=== PATIENT | female | born 1975 | race Caucasian/White ===

== ENCOUNTER 2021-05-24 10:18 | Emergency (ER) | payer OTHER ==
[2021-05-24] MEDS ORDERED: Sodium Chloride 0.9% 10 ML Syringe FLUSH PRN (11:04)
[2021-05-24] MEDS ORDERED: Adenosine 6 MG/2 ML SDV IVPUSH ONE ×2 (11:06)
--- NOTE | 2021-05-24 11:11 | EDM.PDOC ---
<Henry Lawler - Last Filed: 05/25/21 10:08> ED HPI GENERAL MEDICAL PROBLEM - General Chief Complaint: Cardiovascular Problem Stated Complaint: SHORTNESS OF BREATH Time Seen by Provider: 05/24/21 10:54 - Related Data Allergies Allergy/AdvReac Type Severity Reaction Status Date / Time No Known Allergies Allergy Verified 05/24/21 11:00 Home Meds: Home Meds Ascorbic Acid [Vitamin C] 1,000 mg PO DAILY 05/24/21 [History] Ibuprofen 200 mg PO DAILY 05/24/21 [History] Quercetin Dihydrate 100 gm MC DAILY 05/24/21 [History] Saccharomyces Boulardii 250 mg PO DAILY 05/24/21 [History] Vitamin D3/Vitamin K2 (Mk4) [K2 Plus D3 Tablet] 1 each PO DAILY 05/24/21 [History] Zinc Acetate [Galzin] 25 mg PO DAILY 05/24/21 [History] #3 Interpretation EKG Date: 05/25/21 Time: 06:49 Rhythm: NSR Rate (Beats/Min): 71 [place]: Normal P-Wave: Present QRS: Normal ST-T: Normal QT: Normal Comparison: Change From Previous EKG (ST depression in the lateral leads is now resolved as has the heart rate which is now 71 bpm from the previous of 134 bpm) Course - Re-Assessments/Exams Free Text/Narrative Re-Assessment/Exam: 05/25/21 07:09 [Dr. Lawler] assuming care of the patient from Dr. Leroy at 0700 hrs. I reviewed the repeat of the EKG which shows resolution of the ST depression in the lateral leads and a normal sinus rhythm with a rate of 71 bpm now. I reviewed the patient's troponin which shows a slight elevation in her highly sensitive troponin at 0.42. We are still awaiting acceptance and a bed placement at [facility] cardiology. 05/25/21 10:08 I went in to talk with the patient as she was reluctant to take the higher dose of metoprolol 75 mg by mouth. She states in the past she has had difficulty with metoprolol and like to stay with the lower dose more frequent which is reasonable. She is tachycardic regular heart rate of 119 and has evidence on the monitor of ST depression again suggestive of demand ischemia. She is not having any chest pain or shortness of breath at this time. She states that she was trying to do a few exercises in the bed thinking that that would help. Looking at the encounter earlier today when the patient was supine and had tachycardia, it is very suggestive that she has positional or thostatic tachycardic syndrome (POTS) with demand ischemia. She has having a slight rise in her highly sensitive troponin I. I did order the lower dose of metoprolol 37.5 mg by mouth 4 times daily. In addition we will also give her a little bit more fluid of normal saline at 150 an hour as she felt lightheaded when she got up to go to the bathroom. Departure - Departure Disposition: DC/[facility] to [facility] Clinical Impression: Demand ischemia, Tachycardia Referrals: PCP,None [Primary Care Provider] - Forms: ED Department Discharge <HerberrJhoan - Last Filed: 05/25/21 18:49> ED HPI GENERAL MEDICAL PROBLEM - General Source of Information: Reports: Patient, RN Notes Reviewed History Limitations: Reports: No Limitations - History of Present Illness INITIAL COMMENTS - FREE TEXT/NARRATIVE: 45-year-old female presents emergency department day complaint of palpitations, she states palpitations really started this morning she has been feeling not herself for the last week she had Covid about 3 weeks ago symptoms lasted good solid week. She is unvaccinated. Denies any chest pain does feel short of breath no nausea vomiting. Does have a remote history of SVT several years ago which she followed up with cardiology no etiology was discovered was on control up until a couple of months prior. Past Medical History Cardiovascular History: Reports: Arrhythmia (SVT) Social & Family History - Tobacco Use Tobacco Use Status *Q: Never Tobacco User ED ROS GENERAL - Review of Systems Review Of Systems: See Below Constitutional: Reports: No Symptoms HEENT: Reports: No Symptoms Respiratory: Reports: Shortness of Breath Cardiovascular: Reports: Dyspnea on Exertion, Palpitations GI/Abdominal: Reports: No Symptoms ED EXAM, GENERAL - Physical Exam Exam: See Below Exam Limited By: No Limitations General Appearance: Alert, WD/WN, No Apparent Distress Respiratory/Chest: No Respiratory Distress, Lungs Clear, Normal Breath Sounds, No Accessory Muscle Use, Chest Non-Tender Cardiovascular: Tachycardia GI/Abdominal: Soft, Non-Tender Extremities: No Pedal Edema #1 Interpretation EKG Date: 05/24/21 Time: 11:38 Rhythm: Other (Sinus tachycardia) [place]: Normal P-Wave: Present QRS: Normal ST-T: Depressed QT: Normal Comparison: NA - No Prior EKG #2 Interpretation EKG Date: 05/24/21 Time: 15:34 Rhythm: NSR [place]: Normal P-Wave: Present QRS: Normal ST-T: Normal Course - Vital Signs Last Recorded V/S: Last Vital Signs Temp 99.1 F 05/24/21 10:49 Pulse 68 05/25/21 17:59 Resp 20 05/25/21 17:59 BP 117/70 05/25/21 17:59 Pulse Ox 97 05/25/21 17:59 - Orders/Labs/Meds Orders: Active Orders 24 hr Category Date Time Status Ascorbic Acid [Vitamin C] Med 05/25/21 09:00 Active 1,000 mg PO DAILY Ibuprofen [Motrin] Med 05/25/21 09:00 Active 200 mg PO DAILY Metoprolol Tartrate [Lopressor] Med 05/25/21 10:30 Active 37.5 mg PO QID Quercetin Dihydrate [Quercetin Dihydrate] Med 05/25/21 09:00 Active 100 gm MC DAILY Saccharomyces Boulardii [Saccharomyces Boulardii] Med 05/25/21 09:00 Active 250 mg PO DAILY Sodium Chloride 0.9% [Normal Saline] 1,000 ml Med 05/25/21 10:15 Active IV ASDIRECTED Vitamin D3/Vitamin K2 (Mk4) [K2 Plus D3 Tablet] Med 05/25/21 09:00 Active 1 each PO DAILY Zinc Acetate [Galzin] Med 05/25/21 09:00 Active 25 mg PO DAILY EKG 12 Lead [EK] Routine Ther 05/25/21 06:20 Ordered Medication Orders Ascorbic Acid (Ascorbic Acid 500 Mg Tab) 1,000 mg PO DAILY [facility] Last Admin: 05/25/21 10:11 Dose: 1,000 mg Documented by: BADEALL Sodium Chloride (Normal Saline) 1,000 mls @ 999 mls/hr IV ASDIRECTED CRZU Last Admin: 05/24/21 11:31 Dose: 999 mls/hr Documented by: PREILOR Sodium Chloride (Normal Saline) 1,000 mls @ 150 mls/hr IV ASDIRECTED [facility] Last Admin: 05/25/21 10:18 Dose: 150 mls/hr Documented by: TATIANA Ibuprofen (Ibuprofen 200 Mg Tab) 200 mg PO DAILY [facility] Last Admin: 05/25/21 10:22 Dose: Not Given Documented by: TATIANA Metoprolol Tartrate (Metoprolol Tartrate 25 Mg Tab) 37.5 mg PO QID [facility] Last Admin: 05/25/21 15:50 Dose: 37.5 mg Documented by: Admin: 05/25/21 10:32 Dose: 37.5 mg Documented by: TATIANA Non-Formulary Medication (Quercetin Dihydrate [Quercetin Dihydrate]) 100 gm MC DAILY [facility] Last Admin: 05/25/21 10:23 Dose: Not Given Documented by: TATIANA Non-Formulary Medication (Saccharomyces Boulardii [Saccharomyces Boulardii]) 250 mg PO DAILY [facility] Last Admin: 05/25/21 10:51 Dose: Not Given Documented by: TATIANA Non-Formulary Medication (Vitamin D3/Vitamin K2 (Mk4) [K2 Plus D3 Tablet]) 1 each PO DAILY [facility] Last Admin: 05/25/21 10:51 Dose: Not Given Documented by: TATIANA Non-Formulary Medication (Zinc Acetate [Galzin]) 25 mg PO DAILY [facility] Last Admin: 05/25/21 10:51 Dose: Not Given Documented by: TATIANA Sodium Chloride (Sodium Chloride 0.9% 10 Ml Syringe) 10 ml FLUSH ASDIRECTED PRN PRN Reason: Keep Vein Open Last Admin: 05/24/21 11:34 Dose: 10 ml Documented by: PREILOR Labs: Laboratory Tests 05/24/21 05/24/21 05/24/21 Range/Units 11:04 11:15 11:15 WBC 9.8 (4.5-11.0) K/uL RBC 4.52 (3.30-5.50) M/uL Hgb 13.2 (12.0-15.0) g/dL Hct 39.0 (36.0-48.0) % MCV 86 (80-98) fL MCH 29 (27-31) pg MCHC 34 (32-36) % Plt Count 299 (150-400) K/uL Neut % (Auto) 73.6 H (36-66) % Lymph % (Auto) 18.3 L (24-44) % [place] % (Auto) 7.8 H (2-6) % Eos % (Auto) 0.1 L (2-4) % Baso % (Auto) 0.2 (0-1) % D-Dimer, Quantitative 363.10 (0.0-500.0) ng/mL Puncture Site ABG pH (7.350-7.450) ABG pCO2 (35.0-42.0) mmHg ABG pO2 (75.0-100.0) mmHg ABG HCO3 (22.0-26.0) mmol/L ABG Total CO2 (21.0-25.0) mmol/L ABG O2 Saturation (95.0-98.0) % ABG O2 Content (15.0-23.0) %vol ABG Base Excess mm/L ABG Hemoglobin (12.0-16.0) g/dL ABG Oxyhemoglobin % ABG Carboxyhemoglobin (0.0-1.6) % ABG Methemoglobin % Alok Test O2 Delivery Device Sodium 139 L (140-148) mmol/L Potassium 3.8 (3.6-5.2) mmol/L Chloride 104 (100-108) mmol/L Carbon Dioxide 25 (21-32) mmol/L Anion Gap 13.8 (5.0-14.0) mmol/L BUN 13 (7-18) mg/dL Creatinine 0.8 (0.6-1.0) mg/dL Est Cr Clr Drug Dosing 93.63 mL/min Estimated GFR (MDRD) > 60 (>60) Glucose 127 H (74-106) mg/dL Calcium 9.1 (8.5-10.1) mg/dL Total Bilirubin 0.4 (0.2-1.0) mg/dL AST 24 (15-37) U/L ALT 50 (12-78) U/L Alkaline Phosphatase 74 (46-116) U/L Troponin I (0.000-0.056) ng/mL Troponin I High Sens < 4.0 (<=60.3) pg/mL C-Reactive Protein (0.0-0.3) mg/dL Total Protein 7.1 (6.4-8.2) g/dL Albumin 4.1 (3.4-5.0) g/dL Globulin 3.0 (2.3-3.5) g/dL Albumin/Globulin Ratio 1.4 (1.2-2.2) TSH, Ultra Sensitive (0.358-3.740) uIU/mL SARS CoV-2 RNA Rapid BETZY 05/24/21 05/24/21 05/24/21 Range/Units 11:15 11:15 12:37 WBC (4.5-11.0) K/uL RBC (3.30-5.50) M/uL Hgb (12.0-15.0) g/dL Hct (36.0-48.0) % MCV (80-98) fL MCH (27-31) pg MCHC (32-36) % Plt Count (150-400) K/uL Neut % (Auto) (36-66) % Lymph % (Auto) (24-44) % [place] % (Auto) (2-6) % Eos % (Auto) (2-4) % Baso % (Auto) (0-1) % D-Dimer, Quantitative (0.0-500.0) ng/mL Puncture Site Lt radial ABG pH 7.497 H (7.350-7.450) ABG pCO2 28.3 L (35.0-42.0) mmHg ABG pO2 118.0 H (75.0-100.0) mmHg ABG HCO3 21.7 L (22.0-26.0) mmol/L ABG Total CO2 19.1 L (21.0-25.0) mmol/L ABG O2 Saturation 98.7 H (95.0-98.0) % ABG O2 Content 17.4 (15.0-23.0) %vol ABG Base Excess -0.2 mm/L ABG Hemoglobin 12.6 (12.0-16.0) g/dL ABG Oxyhemoglobin 97.3 % ABG Carboxyhemoglobin 0.8 (0.0-1.6) % ABG Methemoglobin 0.6 % Alok Test Passed O2 Delivery Device Room air Sodium (140-148) mmol/L Potassium (3.6-5.2) mmol/L Chloride (100-108) mmol/L Carbon Dioxide (21-32) mmol/L Anion Gap (5.0-14.0) mmol/L BUN (7-18) mg/dL Creatinine (0.6-1.0) mg/dL Est Cr Clr Drug Dosing mL/min Estimated GFR (MDRD) (>60) Glucose (74-106) mg/dL Calcium (8.5-10.1) mg/dL Total Bilirubin (0.2-1.0) mg/dL AST (15-37) U/L ALT (12-78) U/L Alkaline Phosphatase (46-116) U/L Troponin I (0.000-0.056) ng/mL Troponin I High Sens (<=60.3) pg/mL C-Reactive Protein < 0.05 (0.0-0.3) mg/dL Total Protein (6.4-8.2) g/dL Albumin (3.4-5.0) g/dL Globulin (2.3-3.5) g/dL Albumin/Globulin Ratio (1.2-2.2) TSH, Ultra Sensitive 2.856 (0.358-3.740) uIU/mL SARS CoV-2 RNA Rapid BETZY 05/24/21 05/24/21 05/25/21 Range/Units 16:39 17:56 06:07 WBC (4.5-11.0) K/uL RBC (3.30-5.50) M/uL Hgb (12.0-15.0) g/dL Hct (36.0-48.0) % MCV (80-98) fL MCH (27-31) pg MCHC (32-36) % Plt Count (150-400) K/uL Neut % (Auto) (36-66) % Lymph % (Auto) (24-44) % [place] % (Auto) (2-6) % Eos % (Auto) (2-4) % Baso % (Auto) (0-1) % D-Dimer, Quantitative (0.0-500.0) ng/mL Puncture Site ABG pH (7.350-7.450) ABG pCO2 (35.0-42.0) mmHg ABG pO2 (75.0-100.0) mmHg ABG HCO3 (22.0-26.0) mmol/L ABG Total CO2 (21.0-25.0) mmol/L ABG O2 Saturation (95.0-98.0) % ABG O2 Content (15.0-23.0) %vol ABG Base Excess mm/L ABG Hemoglobin (12.0-16.0) g/dL ABG Oxyhemoglobin % ABG Carboxyhemoglobin (0.0-1.6) % ABG Methemoglobin % Alok Test O2 Delivery Device Sodium (140-148) mmol/L Potassium (3.6-5.2) mmol/L Chloride (100-108) mmol/L Carbon Dioxide (21-32) mmol/L Anion Gap (5.0-14.0) mmol/L BUN (7-18) mg/dL Creatinine (0.6-1.0) mg/dL Est Cr Clr Drug Dosing mL/min Estimated GFR (MDRD) (>60) Glucose (74-106) mg/dL Calcium (8.5-10.1) mg/dL Total Bilirubin (0.2-1.0) mg/dL AST (15-37) U/L ALT (12-78) U/L Alkaline Phosphatase (46-116) U/L Troponin I < 0.017 (0.000-0.056) ng/mL Troponin I High Sens 4.2 (<=60.3) pg/mL C-Reactive Protein (0.0-0.3) mg/dL Total Protein (6.4-8.2) g/dL Albumin (3.4-5.0) g/dL Globulin (2.3-3.5) g/dL Albumin/Globulin Ratio (1.2-2.2) TSH, Ultra Sensitive (0.358-3.740) uIU/mL SARS CoV-2 RNA Rapid BETZY Negative Meds: Medications Generic Name Dose Route Start Last Admin Trade Name Eldonq PRN Reason Stop Dose Admin Ascorbic Acid 1,000 mg 05/25/21 09:00 05/25/21 10:11 Ascorbic Acid 500 Mg Tab PO 1,000 mg DAILY CRUZ Administration Sodium Chloride 1,000 mls @ 999 mls/hr 05/24/21 11:15 05/24/21 11:31 Normal Saline IV 999 mls/hr ASDIRECTED CRUZ Administration Sodium Chloride 1,000 mls @ 150 mls/hr 05/25/21 10:15 05/25/21 10:18 Normal Saline IV 150 mls/hr ASDIRECTED CRUZ Administration Ibuprofen 200 mg 05/25/21 09:00 05/25/21 10:22 Ibuprofen 200 Mg Tab PO Not Given DAILY CRUZ Metoprolol Tartrate 37.5 mg 05/25/21 10:30 05/25/21 15:50 Metoprolol Tartrate 25 Mg Tab PO 37.5 mg QID CRUZ Administration Non-Formulary Medication 100 gm 05/25/21 09:00 05/25/21 10:23 Quercetin Dihydrate [Quercetin Dihydrate] MC Not Given DAILY CRUZ Non-Formulary Medication 250 mg 05/25/21 09:00 05/25/21 10:51 Saccharomyces Boulardii [Saccharomyces Boulardii] PO Not Given DAILY CRUZ Non-Formulary Medication 1 each 05/25/21 09:00 05/25/21 10:51 Vitamin D3/Vitamin K2 (Mk4) [K2 Plus D3 Tablet] PO Not Given DAILY CRUZ Non-Formulary Medication 25 mg 05/25/21 09:00 05/25/21 10:51 Zinc Acetate [Galzin] PO Not Given DAILY CRUZ Sodium Chloride 10 ml 05/24/21 11:04 05/24/21 11:34 Sodium Chloride 0.9% 10 Ml Syringe FLUSH 10 ml ASDIRECTED PRN Administration Keep Vein Open Discontinued Medications Generic Name Dose Route Start Last Admin Trade Name Freq PRN Reason Stop Dose Admin Adenosine 6 mg 05/24/21 11:06 05/24/21 11:31 Adenosine 6 Mg/2 Ml Sdv IVPUSH 05/24/21 11:07 6 mg NOW ONE Administration Adenosine 12 mg 05/24/21 11:06 05/25/21 06:02 Adenosine 6 Mg/2 Ml Sdv IVPUSH 05/24/21 11:07 Not Given NOW ONE Aspirin 324 mg 05/25/21 06:10 05/25/21 06:03 Aspirin 81 Mg Tab.Chew PO 05/25/21 06:11 324 mg ONETIME ONE Administration Lorazepam 0.5 mg 05/24/21 12:37 05/24/21 13:59 Lorazepam 2 Mg/Ml Sdv IVPUSH 05/24/21 12:38 0.5 mg ONETIME ONE Administration Metoprolol Tartrate 5 mg 05/24/21 11:24 05/24/21 11:28 Metoprolol Tartrate 5 Mg/5 Ml Sdv IVPUSH 05/24/21 11:25 5 mg ONETIME ONE Administration Metoprolol Tartrate 25 mg 05/24/21 15:45 05/24/21 16:23 Metoprolol Tartrate 25 Mg Tab PO 25 mg Q6H CRUZ Administration Metoprolol Tartrate 25 mg 05/24/21 22:00 Metoprolol Tartrate 25 Mg Tab PO Q6H [facility] Metoprolol Tartrate 50 mg 05/24/21 22:00 Metoprolol Tartrate 50 Mg Tab PO Q6H [facility] Metoprolol Tartrate 37.5 mg 05/24/21 21:30 05/25/21 03:30 Metoprolol Tartrate 25 Mg Tab PO Not Given Q6H [facility] Metoprolol Tartrate 75 mg 05/25/21 09:30 Metoprolol Tartrate 25 Mg Tab PO Q12H [facility] Non-Formulary Medication 1,000 mg 05/25/21 09:00 Ascorbic Acid [Vitamin C] PO DAILY [facility] Non-Formulary Medication 200 mg 05/25/21 09:00 Ibuprofen [Ibuprofen] PO DAILY [facility] - Re-Assessments/Exams Free Text/Narrative Re-Assessment/Exam: 05/24/21 11:39 Initially tried Valsalva maneuvers tried a vagal massage no effect tried 6 mg of adenosine no effect she did not tolerate that medication well declined the next increasing dose. Therefore we tried metoprolol 5mg after the 2.5 mg deana she had a really good response did slow her heart rate down to the 110s 05/24/21 15:34 Called and discussed case Dr. Clark cardiology [facility] at 1530 he found the EKG with ST depressions worrisome in a 45-year-old with no medical history he would like to get an echocardiogram coronary CTA and then heart catheterization. In the meantime she was placed on the [facility] waiting list she will continue to board in the emergency department the plan to start metoprolol 25 mg every 6 hours to reach a heart rate goal between 60 and 80 this will be required for this coronary angiogram CT. He felt this medication could be doubled every 6 hours to get the adequate response therefore we will start the medication now and then recheck in 6 hours well we will also check troponins continually as well. Departure - Departure Time of Disposition: 18:48 Reason for Transfer *Q: Other Condition: Fair Sepsis Event Note (ED) - Evaluation Sepsis Screening Result: No Definite Risk - Focused Exam Vital Signs: Vital Signs Pulse Pulse Resp BP BP Pulse Ox 12/03/21 17:59 68 20 117/70 97 05/25/21 16:46 60 14 106/58 L 99 05/25/21 15:50 77 106/66 05/25/21 15:39 87 14 106/66 99 05/25/21 14:00 65 19 113/67 100 05/25/21 13:09 59 L 14 106/64 100 05/25/21 11:34 65 14 106/68 100 05/25/21 10:32 120 H 120/74 05/25/21 07:15 95 16 133/83 100 - My Orders Last 24 Hours: My Active Orders 05/25/21 09:00 Ascorbic Acid [Vitamin C] 1,000 mg PO DAILY Ibuprofen [Motrin] 200 mg PO DAILY Quercetin Dihydrate [Quercetin Dihydrate] 100 gm MC DAILY Saccharomyces Boulardii [Saccharomyces Boulardii] 250 mg PO DAILY Vitamin D3/Vitamin K2 (Mk4) [K2 Plus D3 Tablet] 1 each PO DAILY Zinc Acetate [Galzin] 25 mg PO DAILY - Assessment/Plan Last 24 Hours: My Active Orders 05/25/21 09:00 Ascorbic Acid [Vitamin C] 1,000 mg PO DAILY Ibuprofen [Motrin] 200 mg PO DAILY Quercetin Dihydrate [Quercetin Dihydrate] 100 gm MC DAILY Saccharomyces Boulardii [Saccharomyces Boulardii] 250 mg PO DAILY Vitamin D3/Vitamin K2 (Mk4) [K2 Plus D3 Tablet] 1 each PO DAILY Zinc Acetate [Galzin] 25 mg PO DAILY Plan: Assessment Acuity = acute Site and laterality = demand ischemia with tachycardia Etiology = unknown Manifestations = none Location of injury = Home Lab values = CBC unremarkable pH initially 7.49 PCO2 20.302 118 bicarb 21.7 multiple troponins drawn the initial 2 were not detectable third troponin this morning is still within normal limits however this is a change. Thyroid normal 2.856 Covid was negative chest x-ray unremarkable 2 EKGs done initial EKG on presentation she is about 135 bpm she does have ST depressions in the chest leads this recovers with resolution of the tachycardia she has been on beta-bl ockers which she responded nicely to currently 37.5 puts her at her heart rate around 80 Plan Called received acceptance from [facility] at [address] Burgos who kindly accepted the patient she will be transported via EMS ground This note was dictated using [employer] voice recognition software please call with any questions on syntax or grammar.
[2021-05-24] MEDS ORDERED: Sodium Chloride 0.9% 1,000 ML IV SCH (11:15)
[2021-05-24] MEDS ORDERED: Metoprolol Tartrate 5 MG/5 ML SDV IVPUSH ONE (11:24)
--- NOTE | 2021-05-24 11:32 | CRLCR ---
For Patients: As a result of the Century Cures Act, medical imaging exams and procedure reports are released immediately into your electronic medical record. You may view this report before your referring provider. If you have questions, please contact your health care provider. INDICATION: chest pain TECHNIQUE: Chest 1 view. COMPARISON: None. FINDINGS: Cardiovascular and mediastinum: Heart size and vasculature are normal in caliber and appearance. Mediastinum is within normal limits. Lungs and pleural space: Lungs are clear. No sign of infiltrate or mass. No sign of pleural effusion. No pneumothorax. Bones and soft tissues: No significant findings. IMPRESSION: Unremarkable chest. Dictated by: Ascencion Servin MD @ 05/24/2021 11:31:02 (Electronically Signed)
[2021-05-24] MEDS ORDERED: LORazepam 2 MG/ML SDV IVPUSH ONE (12:37)
[2021-05-24] MEDS ORDERED: Metoprolol Tartrate 25 MG Tab PO SCH ×2 (15:45→22:00)
[2021-05-24] MEDS: Metoprolol Tartrate 25 MG Tab PO SCH (21:59)
[2021-05-24] MEDS ORDERED: Metoprolol Tartrate 50 MG Tab PO SCH (22:00)
[2021-05-25] MEDS: Metoprolol Tartrate 25 MG Tab PO SCH ×3 (03:30→15:50)
[2021-05-25] MEDS ORDERED: Aspirin 81 MG Tab.Chew PO ONE (06:10)
[2021-05-25] MEDS ORDERED: Non-Formulary Medication 1 Each (Ibuprofen [Ibuprofen] 200 MG Capsule) PO SCH (09:00)
[2021-05-25] MEDS ORDERED: QUERCETIN DIHYDRATE 1 GM MC SCH (09:00)
[2021-05-25] MEDS ORDERED: ZINC ACETATE 25 MG PO SCH (09:00)
[2021-05-25] MEDS ORDERED: Ibuprofen 200 MG Tab PO SCH (09:00)
[2021-05-25] MEDS ORDERED: Ascorbic Acid 500 MG Tab PO SCH (09:00)
[2021-05-25] MEDS ORDERED: Non-Formulary Medication 1 Each (Ascorbic Acid [Vitamin C] 1,000 MG Tablet) PO SCH (09:00)
[2021-05-25] MEDS ORDERED: Metoprolol Tartrate 25 MG Tab PO SCH (09:30)
[2021-05-25] MEDS ORDERED: Sodium Chloride 0.9% 1,000 ML IV SCH (10:15)
== END 2021-05-25 19:30 ==
LOC: JP.ED 10:18
DX: I24.8 Other forms of acute ischemic heart disease (principal); R00.0 Tachycardia, unspecified; Z20.822 Contact with and (suspected) exposure to COVID-19; Z79.899 Other long term (current) drug therapy
CPT/HCPCS: 36415; 36600; 71045; 80053; 82803; 84443; 84484; 85025; 85379; 86140; 87635; 93005; 96374; 96375; 99285; A9270; J0153; J2060; J3490; J7030; U0002